=== PATIENT | male | born 1985 | race Caucasian/White ===

== ENCOUNTER 2017-02-24 20:45 | Emergency (ER) | payer SELFPAY ==
[~2017-02-24] VITALS: Ht 182.9 cm; Wt 77.1 kg
[2017-02-24 20:45] VITALS: BP_SYST 132
--- NOTE | 2017-02-24 20:54 | NUR ---
Patient to ER bed 08 to gown for evaluation. Side rails up.
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
[2017-02-24] MEDS ORDERED: LIB25 PO (21:11)
--- NOTE | 2017-02-24 21:25 | NUR ---
Dr Watson at bedside to evaluate patient.
[2017-02-24] MEDS ORDERED: FOLIC ACID 1 MG, THIAMINE HCL 100 MG, MAGNESIUM SULFATE 1 GM, MVI 10 ML in NACL 0.9% 1,... IV ONE (21:39)
[2017-02-24] MEDS ORDERED: FOLIC ACID 5 MG/ML VIAL IV ONE (21:48)
[2017-02-24] MEDS ORDERED: THIAMINE HCL 100 MG/ML VIAL ONE (21:48)
[2017-02-24] MEDS ORDERED: MVI 10 ML VIAL IV ONE (21:48)
[2017-02-24] MEDS ORDERED: MAGNESIUM SULFATE 1 GM/2 ML VIAL ONE (21:48)
[2017-02-24 22:05] LABS: BASOPHILS % (AUTO) 0.5 % (0.0-2.0); EOSINOPHILS % (AUTO) 0.4 % (0.0-4.0); HEMATOCRIT 40.8 % (36-54); HEMOGLOBIN 13.8 g/dL (14.0-18.0); LYMPHOCYTES % (AUTO) 15.2 % (20.5-51.5); MEAN CORPUSCULAR HEMOGLOBIN 36 pg (27-31); MEAN CORPUSCULAR HGB CONC 34 % (32-36); MEAN CORPUSCULAR VOLUME 106 fL (79.0-98.0); MONOCYTES # (AUTO) 0.5 K/uL (0.0-1.0); MONOCYTES % (AUTO) 8.2 % (1.7-9.3); NEUTROPHILS # (AUTO) 5.1 K/uL (1.8-7.7); NEUTROPHILS % (AUTO) 75.7 % (40.0-70.0); RED BLOOD CELL COUNT(AUTO) 3.85 MIL/uL (4.2-6.2); RED CELL DISTRIBUTION WIDTH 15.5 % (9.0-15.0); WHITE BLOOD COUNT (AUTO) 6.6 K/uL (4.8-10.8)
--- NOTE | 2017-02-24 22:10 | NUR ---
Patient's family reports that patient is having increased anxiety and agitation and would like something to help calm the patient down. Dr Watson is aware and informed family that he will be ordering something to help the patient relax.
[2017-02-24 22:12] LABS: ANION GAP 17 (5-15); CALCIUM 9.2 mg/dL (8.4-11.0); CHLORIDE 94 mmol/L (98-107); CREATININE 0.58 mg/dL (0.55-1.30); GLUCOSE 130 mg/dL (70-99); SODIUM SERUM 136 mmol/L (136-145); UREA NITROGEN, BLOOD 7 mg/dL (8-21)
[2017-02-24 22:15] LABS: GFR AFRICAN AMERICAN 209 mL/min (>90); POTASSIUM 2.7 mmol/L (3.5-5.1)
[2017-02-24] MEDS ORDERED: POTASSIUM CHLORIDE 20 MEQ/PKT PACKET PO ONE (22:15)
[2017-02-24] MEDS ORDERED: LORazepam 1 MG TABLET PO ONE (22:15)
[2017-02-24] MEDS ORDERED: KCL 20 mEq in 100 mL (PREMIX) 100 ML IV ONE (22:15)
[2017-02-24 22:16] LABS: ALANINE AMINOTRANSFERASE 82 U/L (12-78); ALBUMIN 3.6 g/dL (3.4-4.8); ALCOHOL, BLOOD 393 mg/dL (<10); ASPARTATE AMINOTRANSFERASE 172 U/L (10-37); LIPASE 112 U/L (73-393); TOTAL BILIRUBIN 1.1 mg/dL (0.0-1.0)
[2017-02-24 22:17] LABS: PLATELET COUNT (AUTO) 84 K/uL (130-430)
[2017-02-24 22:20] LABS: ACETAMINOPHEN < 1 ug/mL (1-30)
--- NOTE | 2017-02-24 22:30 | NUR ---
Patient placed on shelter monitor which shows sinus tachycardia without ectopy. IV fluid infusing without difficulty-no redness or swelling noted at site. Patient medicated with oral potassium, and IV potassium for Potassium level of 2.7. Potassium IV infusing without difficulty via pump, no redness or swelling noted at site. Patient states that his anxiety is better now after Ativan.
--- NOTE | 2017-02-24 22:50 | NUR ---
IV fluid with banana bag has completed. Patient now c/o burning/pain to right hand IV site. 2nd 1000 ml of NS hung, running wide open. Patient reports decrease in pain to right hand. IV fluid infusing without difficulty-no redness or swelling noted at site. Will continue to observe and assess.
[2017-02-24] MEDS ORDERED: NACL 0.9% 1,000 ML IV ONE ×2 (23:00→23:30)
--- NOTE | 2017-02-24 23:30 | NUR ---
Patient voided 700 ml of clear/alexandra urine. Urine sample obtained and sent to lab.
[2017-02-25 00:01] LABS: BARBITURATE, URINE NEGATIVE (NEG <=200); BENZODIAZEPINE, URINE POSITIVE (NEG <=150); CANNABINOID, URINE NEGATIVE (NEG <=50); COCAINE, URINE NEGATIVE (NEG <=150); OPIATE, URINE NEGATIVE (NEG <=100); PHENCYCLIDINE SCREEN,URINE NEGATIVE (NEG <=25); UR TRICYCLIC ANTIDEPRESSANTS NEGATIVE (NEG <=300); URINE AMPHETAMINE NEGATIVE (NEG <=500); URINE METHADONE NEGATIVE (NEG <=200); URINE OXYCODONE SCREEN NEGATIVE (NEG <=100); URINE PROPOXYPHENE SCREEN NEGATIVE (NEG <=300)
--- NOTE | 2017-02-25 00:20 | NUR ---
Patient resting quietly in no acute distress, vital signs stable, respirations even and unlabored, skins warm and dry to touch. IV fluids infusing without difficulty-no redness or swelling noted at site.
--- NOTE | 2017-02-25 00:24 | NUR ---
IV potassium infusion complete via pump. Patient tolerated well, patient continues to show sinus tachycardia on [employer]. No ectopy noted. IV NS bolus complete as well. Awaiting dispo. Patient resting quietly in no acute distress with eyes closed and slow even respirations. Patient's mother remains at bedside.
--- NOTE | 2017-02-25 01:00 | NUR ---
Patient's mother speaking with Dr Watson regarding plan of care. Dr Watson explaining to patient's mother patient's lab results, and plan for follow up care. Questions of patient's mother answered by Dr Watson. Patient's mother reports that she is going to go home and rest for a little bit, but that she will return at 0600. Patient resting quietly in no acute distress.
[2017-02-25 01:05] LABS: METHAMPHETAMINES SCREEN,URINE NEGATIVE (NEG <=500)
--- NOTE | 2017-02-25 01:30 | NUR ---
Patient voided an additional 600 ml of clear, dark/alexandra urine. Patient resting quietly in no acute distress with eyes closed, and slow even respirations
--- NOTE | 2017-02-25 02:30 | NUR ---
Patient resting quietly in no acute distress with eyes closed, and slow even respirations. monitoring specialist continues to show sinus tachycardia without ectopy. IV saline lock patent to right hand. Awaiting sobriety and dispo. Plan is to discharge patient at 0600 when patient's mother returns.
--- NOTE | 2017-02-25 03:30 | NUR ---
Patient resting quietly. No acute distress noted. Vital signs within normal range.
--- NOTE | 2017-02-25 03:30 | NUR ---
Report received from ZAYNAB Alcantara. Care endorsed.
--- NOTE | 2017-02-25 04:00 | NUR ---
Patient voided 400 ml of clear dark alexandra urine in urinal. Requesting water and cranberry juice. Given water and extra blankets.
--- NOTE | 2017-02-25 04:30 | NUR ---
Patient given 8 oz cranberry juice at request. Tolerated well, no adverse effects noted. Will continue to monitor.
--- NOTE | 2017-02-25 05:30 | NUR ---
Patient resting quietly. No acute distress noted. Vital signs within normal range.
[2017-02-25] MEDS ORDERED: LORazepam 1 MG TABLET PO ONE (06:45)
[2017-02-25 06:57] VITALS: BP_SYST 112
--- NOTE | 2017-02-25 06:57 | NUR ---
Patient given written and verbal discharge instructions and verbalizes understanding. ER MD Dr. Watson discussed with patient the results and treatment provided. Resource paper given to patient and family by Dr. Watson. Patient in stable condition. ID arm band removed. IV catheter removed intact and dressing applied, no active bleeding. Rx of ativan given. Patient educated on pain management and to follow up with PMD. Pain Scale 0/10. Opportunity for questions provided and answered.
== END 2017-02-25 06:57 | disposition home or self-care (01) ==
LOC: SED 20:45 → EDBD 20:45 → SED 02-25 06:57
DX: G92 Toxic encephalopathy (principal); F10.229 Alcohol dependence with intoxication, unspecified; Y90.8 Blood alcohol level of 240 mg/100 ml or more
CPT/HCPCS: 36415; 80053; 80307; 82962; 83690; 85025; 96365; 96366; 96368; 99285; G0480; G0481; G0482; J3411; J3475; J3480; J3490; J7030